=== PATIENT | male | born 1950 | race Caucasian/White ===

== ENCOUNTER → 2017-01-09 | Day surgery (SDC) | payer OTHER ==
[~2017-01-09] VITALS: Ht 182.9 cm; Wt 80.5 kg
[~2017-01-09] MED LIST: CHLORHEXIDINE GLUCONATE 2 % 1 PACK (2 CLOTHS) TOPICAL PRN; DO NOT ADM ANY ANTICOAGULANT DRUGS PRN; EPINEPHrine HCL (1:1000) 1 MG/ML VIAL ONE; FAMOTIDINE 20 MG/2 ML VIAL ONE; INSULIN HUMAN REGULAR 1,000 UNITS/10 ML VIAL SQ PRN; LACTATED RINGER'S 1000 ML IV PRN; LIDOCAINE VISCOUS 2% SOLN 15 ML UDC ONE; METO25TA3 PO; METOPROLOL TARTRATE 25 MG TAB PO PRN; MIDAZOLAM HCL 2 MG/2 ML VIAL ONE; ONDANSETRON HCL 4 MG/2 ML VIAL IV PUSH ONE; POVIDONE IODINE 5% (ANTISEPSIS KIT) 4 APPLICATIONS EACH NARE PRN; PROPOFOL 200 MG/20 ML AMP IV ONE; SODIUM CHLORID 0.9% 500 ML IV PRN; SODIUM CHLORIDE 0.9% 20 ML VIAL ONE; WARF-21 PO; WARF-23 PO
[2017-01-09 06:21] VITALS: BP 144/73; PULSE 52; RESP 18; TEMP 97.7; O2SAT 97
[2017-01-09 06:36] LABS: AUTOMATED NEUTROPHIL # 3.8 TH/MM3 (1.8-7.7); BASOPHIL % 0.6 % (0.0-2.0); EOSINOPHIL # 0.1 TH/MM3 (0-0.4); EOSINOPHIL % 2.5 % (0.0-4.0); HEMATOCRIT 39.3 % (39.0-51.0); HEMO FLAGS DIFF FINAL; LYMPH % 18.1 % (9.0-44.0); MEAN CELL VOLUME 85.5 FL (80.0-100.0); MEAN CORPUSCULAR HEMOGLOBIN 28.2 PG (27.0-34.0); MONO % 7.4 % (0.0-8.0); NEUT % 71.4 % (16.0-70.0); PLATELET COUNT 247 TH/MM3 (150-450); RED CELL DISTRIBUTION WIDTH 12.5 % (11.6-17.2); WHITE BLOOD COUNT 5.3 TH/MM3 (4.0-11.0)
[2017-01-09 06:44] LABS: APTT (PATIENT) 31.7 SEC (24.3-30.1); INTERNATIONAL NORMALIZED RATIO 1.4 RATIO; PROTHROMBIN TIME - PATIENT 15.2 SEC (9.8-11.6)
--- NOTE | 2017-01-09 09:21 | MR ---
cc: CHERELLE VILLARREAL M.D. DATE 01/09/2017 PROCEDURE PERFORMED Fiberoptic bronchoscopy flexible REASON FOR BRONCHOSCOPY Hemoptysis left lower lung infiltrate PROCEDURE NOTE Fiberoptic bronchoscopy performed via LMA. Vocal cords intact. Trachea mildly hyperemic, bud sharp. The right mainstem bronchus, right upper, middle and lower lobes, left main bronchus, left upper and lower lobes inspected, no obstructive pathology or mass lesion seen. Washings obtained from both sides of the tracheobronchial tree for routine TB and fungal cultures. Cytologic lavage biopsy of the left lower lung obtained for cytological exam. The procedure well tolerated. The patient transferred to the recovery room in stable condition. IMPRESSION 1. Mild to moderate tracheobronchitis 2. No obstruction. No mass lesion. 3. Samples obtained as above. Procedure well tolerated. The patient transferred to recovery in stable condition. Cherelle Villarreal MD WWW/SIDRA /8:51 AM /9:15 AM
[2017-01-09 10:10] VITALS: BP 139/77; PULSE 50; RESP 20; TEMP 97.6; O2SAT 97
--- NOTE | 2017-01-09 22:24 | EKG ---
Date Performed: 01/09/2017 Time Performed: 06:41:48 PTAGE: 66 years EKG: SINUS BRADYCARDIA WITH OCCASIONAL SUPRAVENTRICULAR PREMATURE COMPLEXES BORDERLINE ECG NO PREVIOUS TRACING DOCTOR: Susan Perez Interpretating Date/Time 01/09/2017 22:23:15
== END | disposition home or self-care (01) ==
LOC: HSDC 05:28
PROVIDERS: ATTEND Internal Medicine Sleep Medicine
DX: J40 Bronchitis, not specified as acute or chronic (principal); I10 Essential (primary) hypertension; I48.91 Unspecified atrial fibrillation
CPT/HCPCS: 31622; 85025; 85610; 85730; 87015; 87070; 87102; 87116; 87205; 87206; 88112; 88305; 93005; J2250; J2405; J7120; J0171

== ENCOUNTER → 2017-07-22 | Outpatient (CLI) | payer OTHER ==
[~2017-07-22] MED LIST changes: -CHLORHEXIDINE GLUCONATE 2 % 1 PACK (2 CLOTHS) TOPICAL PRN; -DO NOT ADM ANY ANTICOAGULANT DRUGS PRN; -EPINEPHrine HCL (1:1000) 1 MG/ML VIAL ONE; -FAMOTIDINE 20 MG/2 ML VIAL ONE; -INSULIN HUMAN REGULAR 1,000 UNITS/10 ML VIAL SQ PRN; -LACTATED RINGER'S 1000 ML IV PRN; -LIDOCAINE VISCOUS 2% SOLN 15 ML UDC ONE; -METOPROLOL TARTRATE 25 MG TAB PO PRN; -MIDAZOLAM HCL 2 MG/2 ML VIAL ONE; -ONDANSETRON HCL 4 MG/2 ML VIAL IV PUSH ONE; -POVIDONE IODINE 5% (ANTISEPSIS KIT) 4 APPLICATIONS EACH NARE PRN; -PROPOFOL 200 MG/20 ML AMP IV ONE; -SODIUM CHLORID 0.9% 500 ML IV PRN; -SODIUM CHLORIDE 0.9% 20 ML VIAL ONE
== END ==
LOC: HRSP 08:49
PROVIDERS: ATTEND Internal Medicine
DX: R05 Cough (principal)
CPT/HCPCS: 94060; 94620; 94726; 94729; 95012